=== PATIENT | female | born 1985 | race American Indian/Alaskan Native ===

== ENCOUNTER 2017-07-11 03:36 | Emergency (ER) | payer OTHER ==
[2017-07-11 03:37] VITALS: BMI 33.9
[2017-07-11 03:54] VITALS: RESP 20
[2017-07-11 04:54] LABS: BASO # 0.1 K/uL (0.0-0.2); BASO % 0.9 % (0.0-2.0); EOS % 0.4 % (0.0-4.0); HEMOGLOBIN 13.6 g/dL (11.0-16.0); LYMPH # 2.9 K/uL (1.0-4.3); LYMPH % 46.3 % (20.0-40.0); MEAN CELL VOLUME 98.2 fL (81.0-99.0); MEAN CORPUSCULAR HEMOGLOBIN 33.7 pg (27.0-31.0); MEAN CORPUSCULAR HGB CONC 34.3 g/dL (33.0-37.0); MEAN PLATELET VOLUME 7.6 fL (7.2-11.7); MONO # 0.5 K/uL (0.0-0.8); MONO % 7.9 % (0.0-10.0); NEUT # 2.8 K/uL (1.8-7.0); NEUT % 44.5 % (50.0-75.0); NRBC % 0.1 % (0.0-2.0); RBC 4.03 Mil/uL (3.80-5.20); RED CELL DISTRIBUTION WIDTH 12.9 % (11.5-14.5); WHITE BLOOD COUNT 6.2 K/uL (4.8-10.8)
[2017-07-11 04:57] LABS: SQUAMOUS EPITHIAL 13 /hpf (0-5); URINE AMORPHOUS SEDIMENT RARE /ul (<OCC); URINE BACTERIA MOD (<OCC); URINE BILIRUBIN NEGATIVE (NEGATIVE); URINE BLOOD 1+ (NEGATIVE); URINE CLARITY Hazy (Clear); URINE COLOR Yellow (YELLOW); URINE GLUCOSE (UA) NORMAL (Normal); URINE LEUKOCYTE ESTERASE 2+ Leu/uL (Negative); URINE NITRATE NEGATIVE (NEGATIVE); URINE PROTEIN NEGATIVE (NEGATIVE); URINE UROBILINOGEN NORMAL mg/dL (0.2-1.0)
[2017-07-11 05:02] LABS: CALCIUM 8.8 mg/dl (8.6-10.4); GFR AFRICAN-AMERICAN > 60; GFR NON-AFRICAN AMERICAN > 60; LIPASE 130 U/L (23-300)
[2017-07-11 05:05] LABS: ALB/GLOB RATIO 1.1 (1.0-2.1); ALBUMIN 4.3 g/dL (3.5-5.0); ALT/SGPT 25 U/L (9-52); AST/SGOT 45 U/L (14-36); BLOOD UREA NITROGEN 11 mg/dL (7-17)
--- NOTE | 2017-07-11 06:28 | C.PDOC ---
History Of Present Illness Patient is a 32 y/o female who presents to the ED with a complaint of crampy abdominal pain that radiates to the back for the last 2 weeks. Patient notes feeling nauseous last week with episodes of vomiting; patient considered possibly experiencing a miscarriage s/p passing large clots, but never had confirmed with a test or doctors. Denies any medical problems, current medications, allergies, fever, or chills. Patient does not recall LMP. Notes dysuria, no vaginal discharge, normal bowel movements, and frequency. No other physical complaints at this time. Time Seen by Provider: 07/11/17 04:38 Chief Complaint (Nursing): Abdominal Pain History Per: Patient History/Exam Limitations: no limitations Onset/Duration Of Symptoms: Days (2 weeks) Current Symptoms Are (Timing): Still Present Location Of Pain/Discomfort: Suprapubic Radiation Of Pain To:: Back (lower) Associated Symptoms: Nausea, Vomiting, Back Pain, Urinary Symptoms. denies: Fever, Chills Last Bowel Movement: Today Recent travel outside of the [place]: No Last Menstral Period: unknown Past Medical History Reviewed: Historical Data, Nursing Documentation, Vital Signs Vital Signs: Last Vital Signs Temp 98.4 F 07/11/17 03:49 Pulse 80 07/11/17 03:49 Resp 20 07/11/17 03:49 BP 118/88 07/11/17 03:49 Pulse Ox 100 07/11/17 06:46 - Medical History PMH: No Chronic Diseases Surgical History: - [facility] Procedures EXTRACTION OF POC, LOW CERVICAL, OPEN APPROACH (06/15/16) MONITORING OF POC, CARDIAC RATE, RN GASTROENTEROLOGY APPROACH (06/15/16) Family History: States: No Known Family Hx - Social History Hx Tobacco Use: Yes Hx Alcohol Use: No Hx Substance Use: No - Immunization History Hx Tetanus Toxoid Vaccination: No Hx Influenza Vaccination: No Hx Pneumococcal Vaccination: No Review Of Systems Constitutional: Negative for: Fever, Chills Gastrointestinal: Positive for: Nausea, Vomiting, Abdominal Pain Genitourinary: Positive for: Dysuria, Frequency, Vaginal Discharge Physical Exam - Physical Exam Appears: No Acute Distress Skin: Normal Color, Warm, Dry Head: Atraumatic, Normacephalic Oral Mucosa: Moist Chest: Symmetrical Cardiovascular: Rhythm Regular, No Murmur Respiratory: Normal Breath Sounds, No Rales, No Rhonchi, No Wheezing Gastrointestinal/Abdominal: Bowel Sounds (positive), Soft, Tenderness ( suprapubic region) Back: CVA Tenderness (mild bilaterally) Neurological/Psych: Oriented x3, Normal Speech, Normal Cognition ED Course And Treatment - Laboratory Results Result Diagrams: 07/11/17 04:49 07/11/17 04:49 O2 Sat by Pulse Oximetry: 100 Progress Note: Urine culture ordered. Medical Decision Making Medical Decision Making: pt with 2 weeks ab pain, radiates to back, no fever, +dysuria and frequency upreg neg. tx for uti Disposition Counseled Patient/Family Regarding: Studies Performed, Diagnosis, Need For Followup, Rx Given - Disposition Referrals: [facility] at [facility] [Outside] Disposition: HOME/ ROUTINE Disposition Time: 06:51 Condition: STABLE Additional Instructions: Drink increased fluids- cranberry juice good. Take antibiotics as prescribed. Follow up with national account director /[facility] in clinic, call for appointment. Prescriptions: Cefuroxime Axetil [Cefuroxime] 250 mg PO BID #20 tablet Ibuprofen [Motrin] 600 mg PO TID #30 tab Instructions: Urinary Tract Infection in Women (ED) Forms: [facility] (Swedish), General Discharge Instructions - Clinical Impression Clinical Impression: Urinary tract infection - Scribe Statement The provider has reviewed the documentation as recorded by the Scribe Ana Younger All medical record entries made by the Scribe were at my direction and personally dictated by me. I have reviewed the chart and agree that the record accurately reflects my personal performance of the history, physical exam, medical decision making, and the department course for this patient. I have also personally directed, reviewed, and agree with the discharge instructions and disposition.
[2017-07-11 07:15] VITALS: BP 128/70; PULSE 82; TEMP 98; O2SAT 97
== END 2017-07-11 07:14 | disposition home or self-care (01) ==
LOC: C.ER 03:36
DX: N39.0 Urinary tract infection, site not specified (principal)

== ENCOUNTER 2017-09-21 11:48 | Emergency (ER) | payer OTHER ==
[2017-09-21 11:49] VITALS: BMI 33.9
[2017-09-21 11:59] VITALS: TEMP 98.6; O2SAT 98
[2017-09-21 12:18] LABS: HCG,QUALITATIVE URINE NEGATIVE (NEGATIVE)
[2017-09-21 12:23] LABS: SQUAMOUS EPITHIAL 12 /hpf (0-5); URINE BACTERIA OCC (<OCC); URINE BILIRUBIN NEGATIVE (NEGATIVE); URINE BLOOD 1+ (NEGATIVE); URINE CLARITY Hazy (Clear); URINE COLOR Amber (YELLOW); URINE GLUCOSE (UA) NORMAL (Normal); URINE LEUKOCYTE ESTERASE 2+ Leu/uL (Negative); URINE PROTEIN 1+ mg/dL (NEGATIVE)
--- NOTE | 2017-09-21 12:52 | C.PDOC ---
History Of Present Illness 32 year old female presents to the ED for evaluation of suprapubic abdominal pain that radiates to her lower back intermittently for 1 week. Patient also reports a "throbbing" pain to the areas after using the bathroom. She also notes seeing some blood after she wipes. Patient states she was seen in this ED a couple months ago for similar symptoms and was diagnosed with a UTI and discharged with antibiotics. Patient denies fever, chills, diarrhea or vaginal discharge. Time Seen by Provider: 09/21/17 12:18 Chief Complaint (Nursing): Medical Clearance History Per: Patient History/Exam Limitations: no limitations Current Symptoms Are (Timing): Still Present Additional History Per: Patient Past Medical History Reviewed: Historical Data, Nursing Documentation, Vital Signs Vital Signs: Last Vital Signs Temp 98.6 F 09/21/17 14:03 Pulse 88 09/21/17 14:03 Resp 16 09/21/17 14:03 BP 149/99 H 09/21/17 14:03 Pulse Ox 98 09/23/17 13:26 - Medical History PMH: No Chronic Diseases Surgical History: - [facility] Procedures EXTRACTION OF POC, LOW CERVICAL, OPEN APPROACH (06/15/16) MONITORING OF POC, CARDIAC RATE, MORTGAGE CLERK APPROACH (06/15/16) Family History: States: Unknown Family Hx - Social History Hx Tobacco Use: Yes Hx Alcohol Use: Yes Hx Substance Use: No - Immunization History Hx Tetanus Toxoid Vaccination: No Hx Influenza Vaccination: Yes Hx Pneumococcal Vaccination: No Review Of Systems Constitutional: Negative for: Fever, Chills Gastrointestinal: Positive for: Abdominal Pain (suprapubic ). Negative for: Vomiting, Diarrhea Musculoskeletal: Positive for: Back Pain (lower ) Physical Exam - Physical Exam Appears: Non-toxic, No Acute Distress Skin: Normal Color, Warm, Dry, No Rash Head: Atraumatic, Normacephalic Eye(s): bilateral: Normal Inspection, PERRL, EOMI Oral Mucosa: Moist Throat: No Erythema, No Exudate Neck: Normal ROM, Supple Chest: Symmetrical, No Deformity, No Tenderness Cardiovascular: Rhythm Regular, No Murmur Respiratory: Normal Breath Sounds, No Rales, No Rhonchi, No Wheezing Gastrointestinal/Abdominal: Soft, No Tenderness, No Guarding, No Rebound Back: Normal Inspection, No CVA Tenderness Extremity: Normal ROM, Capillary Refill (less than 2 seconds ) Neurological/Psych: Oriented x3, Normal Speech, Normal Cognition, Normal Motor Gait: Steady ED Course And Treatment O2 Sat by Pulse Oximetry: 98 (on RA) Pulse Ox Interpretation: Normal Progress Note: Old records reviewed, the patient was last seen in the ED on 03/18 for similar symptoms and was diagnosed with a UTI, the patient was sent home with Cefuroxime and culture sent. abdomen exam has no tenderness and patient is resting comfortable. The patient is requesting Percocet, stating that percocet is the only medication that works for her pain. Patient is showing drug seeking behavior and narcotics not given for UTI. UA shows there is still a UTI and antibiotics were changes to Cipro. Disposition - Disposition Referrals: [facility] [Outside] Disposition: HOME/ ROUTINE Disposition Time: 13:48 Condition: GOOD Additional Instructions: Follow up with the medical doctor within 1-2 days. return if worsened. Prescriptions: Ciprofloxacin [Cipro] 1 tab PO BID #14 tab Phenazopyridine HCl [Pyridium] 200 mg PO TID #10 tablet Instructions: Urinary Tract Infections in Adults Forms: [facility] (Portuguese) - Clinical Impression Clinical Impression: Urinary tract infection - PA / TWISTING FRAME FIXER / Resident Statement MD/DO has reviewed & agrees with the documentation as recorded. - Scribe Statement The provider has reviewed the documentation as recorded by the Scribe (Cristiane Daily) All medical record entries made by the Scribe were at my direction and personally dictated by me. I have reviewed the chart and agree that the record accurately reflects my personal performance of the history, physical exam, medical decision making, and the department course for this patient. I have also personally directed, reviewed, and agree with the discharge instructions and disposition.
[2017-09-21 14:04] VITALS: BP 149/99; PULSE 88; RESP 16
== END 2017-09-21 14:08 | disposition home or self-care (01) ==
LOC: C.ER 11:48
DX: N39.0 Urinary tract infection, site not specified (principal); Z72.0 Tobacco use

== ENCOUNTER 2018-07-11 12:16 | Emergency (ER) | payer MEDICAID, OTHER ==
[2018-07-11 12:16] VITALS: BMI 33.9
[2018-07-11 12:36] VITALS: BP 165/103; PULSE 92; RESP 16; TEMP 99.6; O2SAT 99
--- NOTE | 2018-07-11 12:57 | C.PDOC ---
History Of Present Illness 33 year old female comes in to the emergency department with her friends complaining of chest pain, cough and spitting up phlegm, sore throat, fever, and chills since yesterday. On assessment, patient is verbally aggressive and antagonistic towards staff. Patient has no other complaints at this time. Time Seen by Provider: 07/11/18 12:28 Chief Complaint (Nursing): Cough, Cold, Congestion History Per: Patient History/Exam Limitations: no limitations Onset/Duration Of Symptoms: Days Current Symptoms Are (Timing): Still Present Past Medical History Reviewed: Historical Data, Nursing Documentation, Vital Signs Vital Signs: Last Vital Signs Temp 99.6 F 07/11/18 12:35 Pulse 92 H 07/11/18 12:35 Resp 16 07/11/18 12:35 BP 165/103 H 07/11/18 12:35 Pulse Ox 99 07/11/18 12:35 Surgical History: - [facility] Procedures EXTRACTION OF POC, LOW CERVICAL, OPEN APPROACH (06/15/16) MONITORING OF POC, CARDIAC RATE, LIGHT OUT EXAMINER APPROACH (06/15/16) Family History: States: No Known Family Hx - Social History Hx Tobacco Use: Yes Hx Alcohol Use: Yes Hx Substance Use: No - Immunization History Hx Tetanus Toxoid Vaccination: No Hx Influenza Vaccination: Yes Hx Pneumococcal Vaccination: No Review Of Systems Except As Marked, All Systems Reviewed And Found Negative. Constitutional: Positive for: Fever, Chills ENT: Positive for: Throat Pain (sore throat). Negative for: Nose Congestion Cardiovascular: Positive for: Chest Pain Respiratory: Positive for: Cough, Sputum. Negative for: Shortness of Breath Physical Exam - Physical Exam Appears: Non-toxic, No Acute Distress Skin: Warm, Dry, No Rash Head: Atraumatic, Normacephalic Eye(s): bilateral: Normal Inspection Oral Mucosa: Moist Throat: Erythema (mild) Cardiovascular: Rhythm Regular, No Murmur Respiratory: Normal Breath Sounds, No Rales, No Rhonchi, No Wheezing Gastrointestinal/Abdominal: Soft, No Tenderness, Other (obese) Extremity: Bilateral: Atraumatic, Normal Color And Temperature, Normal ROM Neurological/Psych: Oriented x3, Normal Speech ED Course And Treatment O2 Sat by Pulse Oximetry: 99 (RA) Pulse Ox Interpretation: Normal Medical Decision Making Medical Decision Making: Plan: --Motrin 600 mg PO --Tamiflu 75 mg PO --Tessalon Perles 200 mg PO --Tylenol PO Diagnosis: Flu Patient is currently afebrile and feeling better. Patient will be discharged with tamiflu and motrin. Disposition Counseled Patient/Family Regarding: Diagnosis, Need For Followup, Rx Given - Disposition Disposition: HOME/ ROUTINE Disposition Time: 12:56 Condition: STABLE Prescriptions: Benzonatate [Tessalon Perles] 200 mg PO TID #30 sgl Ibuprofen [Motrin] 600 mg PO TID #15 tab Oseltamivir Cap [Tamiflu] 1 cap PO BID #10 cap Instructions: Flu, Adult (DC) Forms: [email or web address] (Kinyarwanda) - POA Present On Arrival: None - Clinical Impression Clinical Impression: Influenza-like illness - Scribe Statement The provider has reviewed the documentation as recorded by the Drew Elam Provider Attestation: All medical record entries made by the Wilbertibgriselda were at my direction and personally dictated by me. I have reviewed the chart and agree that the record accurately reflects my personal performance of the history, physical exam, medical decision making, and the department course for this patient. I have also personally directed, reviewed, and agree with the discharge instructions and disposition.
== END 2018-07-11 13:04 | disposition home or self-care (01) ==
LOC: C.ER 12:16
DX: J11.1 Influenza due to unidentified influenza virus with other respiratory manifestations (principal); Z72.0 Tobacco use